=== PATIENT | female | born 1985 | race Two or more races ===

== ENCOUNTER 2022-07-18 08:50 | Emergency (ER) | payer OTHER ==
[~2022-07-18] VITALS: Ht 152.4 cm; Wt 77.1 kg
[2022-07-18 09:13] VITALS: BP 138/75
[2022-07-18] MEDS ORDERED: IBUPROFEN 600 MG TAB PO ONE (09:15)
[2022-07-18] MEDS ORDERED: AZIT500T66 PO (09:51)
[2022-07-18] MEDS ORDERED: PROM1SOL4 PO (09:51)
== END 2022-07-18 09:56 | disposition home or self-care (01) ==
LOC: ER 08:50
DX: J03.90 Acute tonsillitis, unspecified (principal)
CPT/HCPCS: 71045

== ENCOUNTER 2022-10-04 19:42 | Emergency (ER) | payer OTHER ==
[~2022-10-04] VITALS: Ht 152.4 cm; Wt 77.0 kg
[~2022-10-04 19:42] MED LIST: AZIT500T66 PO; PROM1SOL4 PO
[2022-10-04 20:20] LABS: Basophils # (auto) 0 10 ^3/uL (0-0.2); Basophils % (auto) 0.3 % (0.0-2.0); Eosinophils # (auto) 0 10 ^3/uL (0-0.8); Eosinophils % (auto) 0.1 % (0.0-7.0); Hematocrit 41.4 % (36.0-46.0); Hemoglobin 14.2 g/dL (12.2-16.2); Lymphocytes # (auto) 3.5 10 ^3/uL (0.4-5.4); Lymphocytes % (auto) 28.2 % (10.0-50.0); Mean Corpuscular Hemoglobin 28.7 pg (28.0-32.0); Mean Corpuscular Hgb Conc. 34.2 g/dL (32.0-36.0); Mean Corpuscular Volume 83.9 fL (80.0-100.0); Monocytes # (auto) 0.7 10 ^3/uL (0-1.3); Monocytes % (auto) 5.6 % (0.0-12.0); Neutrophils # (auto) 8.1 10 ^3/uL (1.6-8.6); Neutrophils % (auto) 65.8 % (37.0-80.0); Nucleated Red Blood Cells % 0.1 %; Red Blood Cells 4.94 10^6/uL (4.0-5.20); White Blood Cell 12.3 10^3/uL (4.4-10.8)
[2022-10-04 20:35] LABS: Albumin 3.6 g/dL (3.4-5.0); Magnesium 2.1 mg/dL (1.6-2.6); Potassium 3.6 mmol/L (3.5-5.1)
[2022-10-04 20:36] LABS: BUN/Creatinine Ratio 12.8 (10.0-20.0)
[2022-10-04 20:38] LABS: INR 1.02 (0.9-1.15); Partial Thromboplastin Time 30.3 sec (24.6-33.4)
[2022-10-04 20:39] LABS: Total Protein 7.7 g/dL (6.4-8.2)
[2022-10-04] MEDS ORDERED: ASPirin 81 mg TAB PO ONE (21:00)
[2022-10-04 23:00] VITALS: BP 133/79
== END 2022-10-04 23:07 | disposition home or self-care (01) ==
LOC: ER 19:42
DX: R07.89 Other chest pain (principal); R06.02 Shortness of breath
CPT/HCPCS: 36415; 71045; 80053; 83735; 83880; 84484; 85025; 85610; 85730; 93005